=== PATIENT | female | born 1940 | race Caucasian/White ===

== ENCOUNTER 2017-11-30 10:35 | Emergency (ER) | payer MEDICARE ==
[~2017-11-30] VITALS: Ht 167.6 cm; Wt 61.2 kg
[2017-11-30] MEDS ORDERED: LISI-362 PO (10:44)
--- NOTE | 2017-11-30 10:59 | ER Report ---
History and Physical Time Seen By MD: 10:58 Hx. of Stated Complaint: LEFT KNEE PAIN THAT STARTED AFTER SHE STOOD UP. "FELT LIKE SOMETHING GAVE WAY" (ROBERTO CARLOS ENGP-) HPI/ROS CHIEF COMPLAINT: Left knee pain HISTORY OF PRESENT ILLNESS: This is a 76-year-old female who presents to the emergency department for left knee pain. Patient states that she was getting up out of her chair this morning and felt some pain to the superior part of her patella and then it began to swell. Patient states that she decided to come in for further evaluation. Patient states that this last she was in a chair yoga, doing stand up and sit down exercises that may have contributed to the knee pain. She does have swelling and decreased movement to the knee due to pain. The knee is not warm, not hot, no erythema. Patient denies fevers, aches, chills, nausea, vomiting, diarrhea or urinary symptoms. REVIEW OF SYSTEMS: Respiratory: No cough, no dyspnea. Cardiovascular: No chest pain, no palpitations. Gastrointestinal: No vomiting, no abdominal pain. Musculoskeletal: As above. (ROBERTO CARLOS ENG-) Allergies: Coded Allergies: No Known Drug Allergies (Unverified , 11/30/17) Home Meds Reported Medications Lisinopril (LISINOPRIL) 10 Mg Tablet, 10 MG PO QDAY, TAB 11/30/17 Past Medical/Surgical History Patient has a past medical and surgical history of hypertension, osteoporosis, arthritis, retinal repair. (ROBERTO CARLOS ENG-GREG) Reviewed Nurses Notes: Yes (ROBERTO CARLOS ENG) Constitutional Vital Sign - Last 24 Hours 11/30/17 11/30/17 10:40 12:20 Temp 98.9 Pulse 79 74 Resp 18 18 B/P (MAP) 173/87 150/84 (106) Pulse Ox 95 94 O2 Delivery Room Air Room Air (GISELLEMARIE URRUTIA MD) Physical Exam General Appearance: The patient is alert, has no immediate need for airway protection and no current signs of toxicity. Eyes: Pupils equal and round no injection. Respiratory: Chest is non tender, lungs are clear to auscultation. Cardiac: regular rate and rhythm, no murmurs, clicks or rubs. Gastrointestinal: Abdomen is soft and non tender, no masses, bowel sounds normal. Musculoskeletal: Neck: Neck is supple and non tender. Extremities Knee swelling to the superior and lateral aspect of the left knee. Generalized pain to the left knee, increases with palpation. No pinpoint tenderness to the posterior, lateral or medial knee. Able to lift knee off gurney, with pain to the knee. CMS intact distal to the knee. Patella is freely movable. Skin: No rashes or lesions. DIFFERENTIAL DIAGNOSIS: After history and physical exam differential diagnosis was considered for Bursitis, joint effusion, septic knee, cellulitis, patellar dislocation, patellar tendon rupture. (ROBERTO CARLOS ENG) Medical Decision Making EKG/Imaging Imaging PATIENT NAME: Mary Perkins : 1940 MR: [id number] V: [id number] EXAM DATE: ORDERING PHYSICIAN: ROBERTO CARLOS ENG TECHNOLOGIST: Location: [facility] [place] Patient: Mary Perkins : 1940 Visit/Account:[id number] Date of Sevice: 11/30/2017 KNEE 4 VIEW LEFT HISTORY: Pain is swelling. No reported trauma. Additional history: None COMPARISON: None. FINDINGS: Osseous structures are intact. Joint spaces well-maintained. However, there is a sessile bony excrescence seen off the medial anterior and inferior humeral condyles. This best appreciated on the lateral sunrise views and measures approximately 1.5 cm across by 0.5 cm in height. There is a very large suprapatellar joint effusion present. IMPRESSION: Sessile bony excrescence extending off the medial femoral condyle with large joint effusion. Report Dictated By: Odilon Valladares MD at 11/30/2017 11:38 AM Report E-Signed By: Odilon Valladares MD at 11/30/2017 11:41 AM WSN:[id number] (ROBERTO CARLOS ENG-GREG) ED Course/Re-evaluation ED Course The patient was admitted to room. A history physical were obtained. Differential diagnoses were considered. A 4 view x-ray of the left knee showing no acute osseous abnormalities however there is an effusion. I did discuss these results with the patient. We did discuss aspiration of the fluid however the patient ultimately elected to follow up with [facility]. The patient's left knee was wrapped with an Cale wrap. Patient was instructed to keep the leg elevated whenever she is not ambulating, apply ice and keep it wrapped as much as possible until she follows up with [facility]. Patient was also encouraged to take NSAIDs or Tylenol for her discomfort. Patient had no other questions or concerns at this time and was discharged home. Decision to Disposition Date: Nov 30, 2017 Decision to Disposition Time: 12:22 (ROBERTO CARLOS ENG LANDING GEAR MECHANIC-BC) Depart Departure Latest Vital Signs Vital Signs Date Time Temp Pulse Resp B/P (MAP) Pulse Ox O2 Delivery O2 Flow Rate FiO2 11/30/17 12:20 74 18 150/84 (106) 94 Room Air 11/30/17 10:40 98.9 (MARIE DESAI MD) Impression: Primary Impression: Effusion, left knee Additional Impression: Pain and swelling of left knee Condition: Improved Disposition: HOME OR SELF-CARE Referrals: [facility] Patient Instructions: Knee Pain (ED), Swollen Knee Joint (ED) Additional Instructions: Drink plenty of fluids. Get plenty of rest. Try the Cale wrap or your knee compression device to help with swelling. You can take 2 Advil in the morning and 2 Advil at night into the follow-up with [facility]. You can also take 650mg of Tylenol three times a day if need additional pain relief. When you are not moving around please keep you leg elevated, you can apply ice 15-20min 4-5 times per day. Call [facility] Saturday to schedule a follow-up appointment. Follow up with your primary care provider for future needs. Return to the emergency department for any other concerns or worsening symptoms. STREAMING MEDIA SPECIALIST/PA consult with MD: Verbally, Examined Patient MD Consult Note: Roberto Carlos asked me to help see this patient with knee pain and swelling. Sudden onset this morning of pain and swelling. No warmth, rash or redness. History of severe arthritis. Examination of the knee has discomfort but no focal severe tenderness present. Not warm or red. With repositioning of the knee, there is evidence of slight effusion with slight ballotable feeling of the patella. Discussed risks and benefits of doing an arthrocentesis, but risk of current infection or hemarthrosis is low. Discussed benefits of improved pain and sending the arthrocentesis fluid to lab for evaluation and the possible pain relief. Discussed risk of pain, bleeding and infection from the procedure. After we discussed this, we decided on conservative measures of compression, elevation, ice and follow-up with orthopedic surgery without doing the arthrocentesis today. (MARIE DESAI MD) Problem Qualifiers ROBERTO CARLOS ENG LANDING GEAR MECHANIC-BC Nov 30, 2017 10:59 MARIE DESAI MD Nov 30, 2017 12:30
[2017-11-30] MEDS ORDERED: ACETAMINOPHEN 325 MG TAB PO ONE (11:15)
--- NOTE | 2017-11-30 11:45 | RADIOLOGY IMAGING REPORT ---
[place] [facility] [place] Mary [place] : 1940 MR: [id number] V: [id number] EXAM DATE: ORDERING PHYSICIAN: TERRI ENG TECHNOLOGIST: Location: [facility] Patient: Mary Perkins : 1940 Visit/Account:[id number] Date of Sevice: 11/30/2017 KNEE 4 VIEW LEFT HISTORY: Pain is swelling. No reported trauma. Additional history: None COMPARISON: None. FINDINGS: Osseous structures are intact. Joint spaces well-maintained. However, there is a sessile bony excresc ence seen off the medial anterior and inferior humeral condyles. This best appreciated on the lateral sunrise views and measures approximately 1.5 cm across by 0.5 cm in height. There is a very large church prapatellar joint effusion present. IMPRESSION: Sessile bony excrescence extending off the medial femoral condyle with large joint effusion. Report Dictated By: Odilon Valladares MD at 11/30/2017 11:38 AM Report E-Signed By: Odilon Valladares MD at 11/30/2017 11:41 AM WSN:[id number]
[2017-11-30 12:20] VITALS: BP 150/84
== END 2017-11-30 12:30 | disposition home or self-care (01) ==
LOC: ER 10:45
DX: M25.462 Effusion, left knee (principal)
CPT/HCPCS: 73564; 99282

== ENCOUNTER → 2018-03-04 | Outpatient (REF) | payer MEDICARE ==
[~2018-03-04] MED LIST: LISI-362 PO
[2018-03-04 15:14] LABS: PLATELET COUNT, AUTOMATED 242 K/uL (150-450)
== END ==
LOC: ZZSENDIN 14:53
PROVIDERS: ATTEND Physician Assistant
DX: Z01.818 Encounter for other preprocedural examination (principal)
CPT/HCPCS: 81001; 85025

== ENCOUNTER → 2018-03-11 | Outpatient (CLI) | payer MEDICARE ==
--- NOTE | 2018-03-12 12:50 | RADIOLOGY IMAGING REPORT ---
FACILITY: [facility] [place] PATIENT NAME: EUFEMIA BERNSTEIN : [id number] MR: [id number] V: [id number] EXAM DATE: ORDERING PHYSICIAN: ORVILLE TABOR TECHNOLOGIST: Brenda Mcdermott EXAMINATION:TWO-DIMENSIONAL ECHOCARDIOGRAPH REASON:HYPERTENSION/PRESURG 2D Measurements (normal values in centimeters) LV endLV endRV endVent.LV PostAorticLeftPercent DiastolicSystolicDiastolicSeptumWallRootAtriumShortening (3.5-5.7)(0.9-2.6)(0.6-1.1)(0.6-1.1)(2.0-3.7)(1.9-4.0)(25-35%) [id number]% STROKE VOLUME: 48.7ml ESTIMATED EJECTION FRACTION:50% PARASTERNAL LONG AXIS: Overall left ventricular systolic function appears to be normal. No specific wall motion abnormalities are noted. There is mild mitral annular calcification. The valve does not appear to be stenotic. Patient is in sinus rhythm. There is some aortic insufficiency present. PARASTERNAL SHORT AXIS: Aortic valve is trileaflet in configuration with mild aortic stenosis but does not appear to be stenotic. There is some tricuspid insufficiency noted. APICAL FOUR AND TWO CHAMBER: Normal left ventricular ejection fraction. Mild mitral annular calcification. Color examination of the valves reveals some mitral & tricuspid insufficiency as well as some aortic insufficiency present. Aortic valve area was measured within normal ranges at 2.6cm2. Mitral valve area was measured within normal ranges at 2.8cm2. The tricuspid regurgitation Vmax measured 2.73m/sec with an estimated right atrial pressure of 3mm Hg giving a total right ventricular pressure of 33mm Hg which is within normal ranges. Mild enlargement of the left atrium with the left atrial volume being measured at 29ml/m2. Right atrial volume was measured within normal ranges at 19ml/m2. The right ventricular function appears to be normal with the TAPSE measured at 2.8. Aortic insufficiency pressure at half time is measured at 522msec. SUBCOSTAL VIEW: No pericardial effusion was noted. No atrioseptal or ventriculoseptal defects were noted. Doppler examination of the mitral valve in diastole does reveal the A wave > E wave. OVERALL IMPRESSION: 1. Normal left ventricular ejection at the lower range of normal at 50% with a mild Grade 1 decrease in diastolic function. 2. Borderline enlargement of the right ventricle with mild enlargement of the left atrium. Other chamber sizes appear to be normal. 3. No left ventricular thickening is noted. 4. A trileaflet aortic valve with mild aortic sclerosis & a mild amount of aortic insufficiency noted. 5. A trace to mild amount of pulmonic insufficiency. 6. A mild amount of tricuspid insufficiency & a trace of mitral insufficiency. The estimated right ventricular systolic pressure is within normal ranges at 33mm Hg. Dictated by: Elsa Knowles M.D. on 03/11/2018 at 18:15 Transcribed by: YARA on 03/12/2018 at 9:17 Approved by: Elsa Knowles M.D. on 03/12/2018 at 12:49 [facility]
== END ==
LOC: US 01:58
PROVIDERS: ATTEND Physician Assistant
DX: I50.30 Unspecified diastolic (congestive) heart failure (principal); I51.7 Cardiomegaly; I25.10 Atherosclerotic heart disease of native coronary artery without angina pectoris; I35.1 Nonrheumatic aortic (valve) insufficiency; I07.1 Rheumatic tricuspid insufficiency; I34.0 Nonrheumatic mitral (valve) insufficiency
CPT/HCPCS: 93306

== ENCOUNTER 2018-03-24 02:47 | Observation (INO) | payer MEDICARE ==
[2018-03-23 15:35] LABS: INR 0.99
[2018-03-24] VITALS (14 sets, daily range): BP systolic 129–179; BP diastolic 69–123
[~2018-03-24] VITALS: Ht 167.6 cm; Wt 58.1 kg
[~2018-03-24 02:47] MED LIST changes: +ACET500T68 PO; +CELECOXIB 200 MG CAP PO ONE; +PREGABALIN 75 MG CAPSULE PO ONE
[2018-03-24] MEDS ORDERED: LIDOCAINE MPF 1% 5 ML VIAL ONE (08:13)
[2018-03-24] MEDS ORDERED: PROPOFOL EMUL(*) 10MG/ML 20 ML 20 ML ONE (08:13)
[2018-03-24] MEDS ORDERED: DEXAMETHASONE SOD PHOS 10MG/ML ONE (08:13)
[2018-03-24] MEDS ORDERED: ONDANSETRON 4 MG/2 ML VIAL ONE (08:13)
[2018-03-24] MEDS ORDERED: fentaNYL CITR 100 MCG/2 ML AMP ONE (08:13)
[2018-03-24] MEDS ORDERED: MIDAZOLAM 2 MG/2 ML VIAL IVP PRN (08:50)
[2018-03-24] MEDS ORDERED: TRANEXAMIC AC 1000 MG/10ML SDV 1,000 MG in DEXTROSE 5% 50 ML BAG 50 ML IV ONE (08:50)
[2018-03-24] MEDS ORDERED: NORMOSOL R SOLN(*) 1000 ML BAG 1,000 ML IV PRN ×2 (08:50→12:55)
[2018-03-24] MEDS ORDERED: ceFAZolin(*) 1 GM VIAL 1 GM in NS(*) 0.9% 100 ML ADDVANT BAG 100 ML IVPB ONE (08:50)
[2018-03-24] MEDS ORDERED: cloNIDine EPIDUR INJ 100MCG/ML 40 MCG, ROPIVACAINE 0.5% 20 ML VIAL 25 ML, EPINEPHrine H... INJ ONE ×2 (08:50)
[2018-03-24] MEDS ORDERED: ACETAMINOPHEN 500 MG TAB PO ONE (08:50)
[2018-03-24] MEDS ORDERED: LIDOCAINE/SOD BICARB 8.4% SYR ID ONE (08:50)
[2018-03-24] MEDS ORDERED: PREGABALIN 75 MG CAPSULE PO ONE (08:50)
[2018-03-24] MEDS ORDERED: FAMOTIDINE 20 MG TAB PO ONE (08:50)
[2018-03-24] MEDS ORDERED: CELECOXIB 200 MG CAP PO ONE (08:50)
[2018-03-24] MEDS ORDERED: SUGAMMADEX SOD 200 MG/2 ML SDV ONE (08:51)
[2018-03-24] MEDS ORDERED: PHENYLEPHRINE/NS/PF 0.4MG/10ML ONE (11:30)
[2018-03-24] MEDS ORDERED: ACETAMINOPHEN(*)1000 MG/100 ML 0 ML IVPB ONE (12:25)
[2018-03-24] MEDS ORDERED: ONDANSETRON 4 MG/2 ML VIAL IVP PRN (12:55)
[2018-03-24] MEDS ORDERED: PROMETHAZINE 25 MG/ML 1 ML AMP IVP PRN (12:55)
[2018-03-24] MEDS ORDERED: MORPHINE SULFATE 30 MG PCA IV PRN (12:55)
[2018-03-24] MEDS ORDERED: NALOXONE HCL 0.4 MG/ML VIAL IVP PRN (12:55)
[2018-03-24] MEDS ORDERED: MAGNESIUM HYDROXIDE* 30ML UDCP PO PRN (12:55)
[2018-03-24] MEDS ORDERED: ZOLPIDEM TARTRATE 5 MG TAB PO PRN (12:55)
[2018-03-24] MEDS ORDERED: FLUSH 10 ML SYR IVP PRN (12:55)
[2018-03-24] MEDS ORDERED: BISACODYL 10 MG SUPP PR PRN (12:55)
[2018-03-24] MEDS ORDERED: MORPHINE 2 MG/ML SYR IVP PRN (13:00)
--- NOTE | 2018-03-24 13:05 | RADIOLOGY IMAGING REPORT ---
FACILITY: [facility] PATIENT NAME: Kitty Perkins : 1940 MR: [id number] V: [id number] EXAM DATE: ORDERING PHYSICIAN: PATTI ARROYO TECHNOLOGIST: Location: [facility] - [place], [place] Patient: Kitty Perkins : 1940 Visit/Account:[id number] Date of Sevice: 03/24/2018 KNEE LIMITED LEFT Indication: Postop films Comparison: 11/30/2017 Findings: The patient has undergone three part total knee arthroplasty. Components are well seated without ulises dence of abnormality. Alignment is neutral. IMPRESSION: 1. Unremarkable three part TKA Report Dictated By: Gian Cook at 03/24/2018 1:01 PM Report E-Signed By: Gian Cook at 03/24/2018 1:01 PM WSN:[id number]
[2018-03-24] MEDS: KETOROLAC TROM 10MG TAB PO PRN ×2 (13:27→21:34)
--- NOTE | 2018-03-24 13:34 | Hospitalist Consultation ---
History of Present Illness Requesting Physician Dr. Meyers Reason for Consult Hypertension Chief Complaint s/p left total knee replacement History of Present Illness She was admitted s/p left total knee replacement. It is reported the surgery went well and without complication. History Problems: (1) Hypertension Status: Chronic Home Meds Reported Medications Acetaminophen (TYLENOL EXTRA STRENGTH) 500 Mg Tablet, 1000 MG PO TID Y for PAIN , TAB 03/18/18 Lisinopril (LISINOPRIL) 10 Mg Tablet, 10 MG PO QDAY, TAB 11/30/17 Allergies: Coded Allergies: tramadol (Verified Allergy, Intermediate, ITCHING, 03/18/18) Patient History: FH: CAD (coronary artery disease) FATHER, FH: CVA (cerebrovascular accident) MOTHER, Hx Smoking: No Smoking Status: Never Smoker Caffeine Intake: Coffee Caffeine/Cups Per Day: 2 CUPS COFFEE, OCC SODA Hx Alcohol Use: Yes Alcohol Used: Wine Hx Substance Use Disorder: No Social Drug Use: Never History of IV Drug Use: No Review of Systems All Systems Reviewed/Normal: Yes, Except as Noted Exam Vital Signs Vital Signs Date Time Temp Pulse Resp B/P (MAP) Pulse Ox O2 Delivery O2 Flow Rate FiO2 03/24/18 12:49 79 16 159/81 (107) 99 Nasal Cannula 2.0 03/24/18 08:35 98.3 General Appearance: Alert, Awake, No Acute Distress, Afebrile Neuro: No Gross deficits Cardiovascular: Regular Rate and Rhythm Respiratory: No Respiratory Distress, Clear to Auscultation GI: Abd Soft and Non-Tender Psych: Alert & Oriented X3, Appropriate Mood & Affect Assessment and Plan Problems: (1) Status post total left knee replacement Status: Acute Assessment & Plan: Followed by Dr. Meyers. She will be placed on Aspirin 325 mg daily for DVT prophylaxis. (2) Hypertension Status: Chronic Assessment & Plan: She is on chronic treatment with Lisinopril. Venous Thromboembolism Antithrombotics Is Pt On Any Antithrombotics?: No Problem Qualifiers (1) Hypertension: Hypertension type: essential hypertension Qualified Codes: I10 - Essential ( primary) hypertension NAVI KEYS NEUROLOGY MANAGER March 24, 2018 13:34
[2018-03-24] MEDS ORDERED: NS(*) 0.9% 500 ML BAG 500 ML ONE (16:48)
[2018-03-24] MEDS: CEFAZOLIN PREM 1 GM/D5W 50 ML 50 ML IVPB SCH (16:53)
[2018-03-24] MEDS: ACETAMINOPHEN 500 MG TAB PO SCH (16:54)
[2018-03-24] MEDS: LISINOPRIL 10 MG TAB PO SCH (20:22)
[2018-03-25] MEDS: CEFAZOLIN PREM 1 GM/D5W 50 ML 50 ML IVPB SCH ×2 (00:35→09:21)
[2018-03-25] MEDS: ACETAMINOPHEN 500 MG TAB PO SCH ×3 (00:36→16:26)
[2018-03-25 00:39] VITALS: BP 133/68
[2018-03-25] MEDS: oxyCODONE HCL 5 MG CAP PO PRN ×4 (01:50→16:26)
[2018-03-25 05:00] VITALS: BP 137/66
[2018-03-25 07:20] VITALS: BP 126/69
[2018-03-25] MEDS: KETOROLAC TROM 10MG TAB PO PRN ×2 (09:21→20:25)
[2018-03-25] MEDS: ASPIRIN 325 MG TAB PO SCH (09:21)
--- NOTE | 2018-03-25 10:29 | Hospitalist Progress Note ---
Subjective Progress Notes Subjective She has no concerns this morning. Patient Complains of: Cardiovascular: No: Chest Pain Respiratory: No: Shortness of Breath Physical Exam Vital Signs Date Time Temp Pulse Resp B/P (MAP) Pulse Ox O2 Delivery O2 Flow Rate FiO2 03/25/18 07:39 94 Nasal Cannula 1.0 03/25/18 07:20 98.4 66 14 126/69 (88) General Appearance: Alert, Awake, No Acute Distress, Afebrile Neuro: No Gross deficits Cardiovascular: Regular Rate and Rhythm Respiratory: No Respiratory Distress, Clear to Auscultation GI: Soft and Non-Tender Psych: Alert & Oriented X3, Appropriate Mood & Affect Result Diagram: 03/25/18 0524 Assessment and Plan Problems: (1) Status post total left knee replacement Status: Acute Assessment & Plan: Followed by Dr. Meyers. She will be placed on Aspirin 325 mg daily for DVT prophylaxis. (2) Hypertension Status: Chronic Assessment & Plan: She is on chronic treatment with Lisinopril. Exam Sepsis Risk: No Definite Risk Problem Qualifiers (1) Hypertension: Hypertension type: essential hypertension Qualified Codes: I10 - Essential ( primary) hypertension NAVI KEYS ONCOLOGY RESEARCH RN March 25, 2018 10:29
[2018-03-25 10:51] VITALS: Ht 167.6 cm; Wt 58.1 kg
[2018-03-25 11:35] VITALS: BP 136/72
--- NOTE | 2018-03-25 14:00 | CARSON TKA ---
EVENT DATE: March 24, 2018 SURGEON: Marcus Meyers MD ANESTHESIOLOGIST: Claude Francis MD ANESTHESIA: Spinal followed by general. Patient also received 1 g IV tranexamic acid 10 minutes prior to cutting, and at the end of the implantation. Patient received 50 mL of our standard ropivacaine Toradol cocktail after implantation of the prostheses in the distal quad mechanism. SOIL BIOLOGY TEACHER: YESIKA Campbell CHANGE CONTROL ANALYST, BSSymone, CHANGE CONTROL ANALYST PREOPERATIVE DIAGNOSIS Left knee degenerative joint disease. POSTOPERATIVE DIAGNOSIS Left knee degenerative joint disease. PROCEDURE PERFORMED Left total knee arthroplasty. IMPLANTS MicroPort medial pivot shift CS system with a 6 femur, 5 tibia, 5+10 mm tibial insert, 35 x 8 symmetric patella, femur cut 6 degrees valgus, 10 mm. We utilized two packages of DonJoy cobalt blue cement and ZipLine wound closure system. SPECIMENS None. COMPLICATIONS None. BLOOD LOSS Less than 200 mL. OPERATION The patient received appropriate preoperative antibiotic, was brought to the OR , where Dr. Francis performed spinal followed by general anesthesia. Left thigh tourniquet was placed. Left lower extremity prepped and draped in the usual sterile fashion. Midline incision was made followed by a medial parapatellar arthrotomy. I dissected subperiosteally along the medial tibial plateau to the level of the semimembranosus insertion. Significant fat pad hypertrophy was noted and excised by Bovwillam. Patella released and everted. Patella was eroded, particularly in lateral facet. Significant spurring was noted around this. The lateral trochlea was significantly worn, and actually had been eroded such that it was actually lower than the medial trochlea at this time. Grade 4 changes were noted in the patellofemoral compartment. Femur showed grade 3 and 4 changes. Tibia had minor changes. ACL and PCL were released subperiosteally by Bovwillam, knee brought up into flexion, appropriate retractors placed. The remaining articular cartilage was removed from the distal femoral condyle by sagittal saw, followed by utilizing step cut drill to broach the femoral canal. Distal femoral alignment guide was then placed. We set up the distal cut, 6 degrees valgus, 10 mm, and with care taken to protect the soft tissues, the cut was made. 3-degree external rotation guide was then utilized to size the femur to a #6, referencing off the anterior flange, epicondyles and posterior condyles , and we drilled the 3-degree external rotation holes. #6 four-in-one cutting block was positioned, followed by Z retractors to protect the soft tissue, and we made our four cuts. It should be noted that cartilage was significantly blue , consistent with previous tetracycline use. Tibia was brought anteriorly on the femur with appropriate retractors. Step cut drill was utilized to broach the canal. We utilized intramedullary tibial claribel to set up for slope. We then referenced 4 mm off the medial tibial plateau, set up for rotation, pinned the block into place, and then made our cut. We felt this was still in balance with flexion and extension, gap testing, and we set up our block and took 2 mm more. We then removed the stump of the ACL and PCL, medial and lateral meniscus by Bovie. Curved osteotome was utilized to remove posterior osteophytes, followed by elevation of the capsule with Hudson elevator. Trial #5 tibial base plate was positioned, and referencing from rotation, pinned this into position. We placed our 10 mm tibial insert trial followed by femur. We achieved full extension. Flexion was approximately 130 degrees with stability through varus/valgus stress and satisfactory anterior drawer at 90 degrees. Knee brought out in full extension while we sized the patella. Since the lateral facet was at most 10 mm in depth at one point, we free handed this, and coming down to a depth of 13 mm. Peg hole trial was positioned inferiorly medially, peg holes drilled, and the 35 x 8 trial was placed. We then brought the knee into flexion. Peg holes were drilled and pegs placed for the femur. Cut was made for trochlear chip. This was placed. Patella was then noted to track well with stability through varus/valgus stress. Aforementioned range of motion was noted. Anterior drawer was sold. The patella, femur, tibial insert were removed. Appropriate retractors were then once again positioned. We set up our tower, which was then cut, reamed and punched. This was for the tibial keel. This instrumentation was then removed. Bone plug placed in the distal femur, and we copiously irrigated by pulse lavage while we mixed two packages of [place] blue cement. We then injected 10 mL of our cocktail into the posterior capsule region followed by appropriate positioning of retractors to start cementing with the tibia, followed by our 10 mm insert, then our femur. Excess cement was removed, knee brought out in full extension with axial compression while we cemented patella, and after 14 minutes, the cement had hardened. Again, we had 0 to 135 range of motion. Patella tracked well with stability through varus/valgus stress. Anterior drawer was solid. We copiously irrigated by pulse lavage once again, injected the remaining 40 mL of our cocktail in the distal quad mechanism, followed by closure of the arthrotomy with #2 Vicryl in [id number] suture fashion and 2-0 Vicryl for subcutaneous tissues, and after cleaning the wounds placed the knee at 45 degrees, ZipLine wound closure system. Compressive dressing was applied. Patient extubated and taken to recovery in stable condition. Hospitalist team to be consulted for medical management and anticoagulation, PT and OT for rehab. CRISTHIAN
[2018-03-25 15:23] VITALS: BP 140/82
[2018-03-25 19:55] VITALS: BP 156/73
[2018-03-25] MEDS: LISINOPRIL 10 MG TAB PO SCH (20:24)
[2018-03-26] MEDS: oxyCODONE HCL 5 MG CAP PO PRN ×2 (01:09→09:02)
[2018-03-26] MEDS: ACETAMINOPHEN 500 MG TAB PO SCH ×2 (01:09→09:03)
[2018-03-26 01:11] VITALS: BP 156/73
[2018-03-26 05:24] VITALS: BP 169/76
[2018-03-26] MEDS: KETOROLAC TROM 10MG TAB PO PRN (05:38)
[2018-03-26] MEDS ORDERED: OXYC5TAB38 PO (06:50)
[2018-03-26 07:22] VITALS: BP 156/84
[2018-03-26] MEDS ORDERED: ASPI-757 PO (09:02)
[2018-03-26] MEDS: ASPIRIN 325 MG TAB PO SCH (09:03)
--- NOTE | 2018-03-26 09:08 | Hospitalist Progress Note ---
Subjective Progress Notes Subjective She has no concerns this morning. She states she is ready to go home. Patient Complains of: Neurological: No: Dizziness Cardiovascular: No: Chest Pain Respiratory: No: Shortness of Breath Physical Exam Vital Signs Date Time Temp Pulse Resp B/P (MAP) Pulse Ox O2 Delivery O2 Flow Rate FiO2 03/26/18 07:22 92 03/26/18 07:22 98.5 77 16 156/84 (108) Room Air 03/25/18 20:05 1.0 Intake and Output 03/27/18 07:00 Intake Total 600 ml Balance 600 ml Intake Oral 600 ml # Voids 1 General Appearance: Alert, Awake, No Acute Distress, Afebrile Neuro: No Gross deficits Cardiovascular: Regular Rate and Rhythm Respiratory: No Respiratory Distress, Clear to Auscultation Extremities: Perfused, No Edema Psych: Alert & Oriented X3, Appropriate Mood & Affect Result Diagram: 03/26/18 0515 Assessment and Plan Problems: (1) Status post total left knee replacement Status: Acute Assessment & Plan: Followed by Dr. Meyers. She will be placed on Aspirin 325 mg daily for DVT prophylaxis for 30 days post-operatively. (2) Hypertension Status: Chronic Assessment & Plan: She is on chronic treatment with Lisinopril. However, her blood pressures were noted to be elevated throughout admission. Systolic blood pressures were noted to be 130-170's. At this time, the patient is asymptotic from elevated blood pressures, however I did recommend the patient follow up with her PCP for increase of blood pressure medications within one to two weeks post-operatively. Copies to: ORVILLE TABOR PA-C Exam Sepsis Risk: No Definite Risk Problem Qualifiers (1) Hypertension: Hypertension type: essential hypertension Qualified Codes: I10 - Essential ( primary) hypertension NAVI KEYSP March 26, 2018 09:08
--- NOTE | 2018-03-26 15:33 | DISCHARGE SUMMARY ---
HISTORY OF PRESENT ILLNESS This is a 77-year-old female admitted to Day Surgery and underwent left total knee arthroplasty. Postoperatively the hospitalist team was consulted for medical management and anticoagulation, PT and OT for rehab. She progressed in a satisfactory manner. On the date of discharge, the left lower extremity was neurovascularly intact. The wound is clean, dry and intact. Plan is for clearance by hospitalist team and PT and then discharge to home with outpatient physical therapy, home CPM, dressing changes p.r.n. per the [facility] protocol. We will see her in clinic in approximately two weeks. She was given OxyIR number 30 for pain, and recommended Tylenol. PRINCIPAL DIAGNOSIS Left knee degenerative joint disease. PRINCIPAL PROCEDURE Left total knee arthroplasty. CRISTHIAN
== END 2018-03-26 09:22 | disposition home or self-care (01) ==
LOC: OR 02:47 → MED 12:45
PROVIDERS: ADMIT Orthopaedic Surgery; ATTEND Orthopaedic Surgery
DX: M17.12 Unilateral primary osteoarthritis, left knee (principal); I10 Essential (primary) hypertension; M81.0 Age-related osteoporosis without current pathological fracture; Z86.73 Personal history of transient ischemic attack (TIA), and cerebral infarction without residual deficits
CPT/HCPCS: 27447; 36415; 73560; 85014; 85018; 85610; 86850; 86900; 86901; 97110; 97116; 97161; 97530; A9270; C1713; C1776; G0378; J0171; J0690; J0735; J1100; J1885; J2001; J2370; J2405; J2704; J2795; J3010; J7040; J7050; J7060

== ENCOUNTER → 2018-06-11 | Outpatient (CLI) | payer MEDICARE ==
[2018-03-25 10:51] VITALS: BMI 20.7
[~2018-06-11] MED LIST changes: +ASPI-757 PO; -CELECOXIB 200 MG CAP PO ONE; +OXYC5TAB38 PO; -PREGABALIN 75 MG CAPSULE PO ONE
--- NOTE | 2018-06-12 15:03 | RADIOLOGY IMAGING REPORT ---
FACILITY: [facility] PATIENT NAME: EUFEMIA BERNSTEIN : [id number] MR: [id number] V: [id number] EXAM DATE: ORDERING PHYSICIAN: [place] TABOR TECHNOLOGIST: Sil Lynne PROCEDURE:BILATERAL DIGITAL SCREENING MAMMOGRAM WITH CAD ASSISTED INTERPRETATION & 3D TOMOSYNTHESIS COMPARISON:Prior mammograms 05/08/17, 03/02/15. INDICATIONS:screening FINDINGS: Moderately dense fibroglandular tissue is seen throughout the breasts. The parenchymal pattern has remained stable allowing for difference in mammographic technique & patient positioning. There is no evidence of malignant appearing mass, malignant appearing calcifications or other secondary sign of malignancy in either breast. DIAGNOSTIC CATEGORY 1--NEGATIVE. RECOMMENDATIONS: ROUTINE MAMMOGRAM AND CLINICAL EVALUATION. IMPRESSION: BIRADS 1: Negative. No significant abnormality is seen. Dictated by: Deyanira Estevez M.D. on 06/11/2018 at 14:12 Transcribed by: TANA on 06/11/2018 at 14:18 Approved by: Deyanira Estevez M.D. on 06/12/2018 at 15:01 [facility]
== END ==
LOC: MAMO 06-02 01:58
PROVIDERS: ATTEND Physician Assistant
DX: Z12.31 Encounter for screening mammogram for malignant neoplasm of breast (principal)
CPT/HCPCS: 77063; 77067